=== PATIENT | male | born 2000 | race Caucasian/White ===

== ENCOUNTER 2020-10-29 20:58 | Emergency (ER) | payer OTHER ==
[2020-10-29] MEDS ORDERED: NAPROSYN500 MG PO (23:37)
== END 2020-10-30 00:58 | disposition home or self-care (01) ==
LOC: ER1 20:58
DX: S43.014A Anterior dislocation of right humerus, initial encounter (principal); F17.200 Nicotine dependence, unspecified, uncomplicated; X58.XXXA Exposure to other specified factors, initial encounter; Y93.44 Activity, trampolining
CPT/HCPCS: 23650; 73020; 73030; 96374; 96375; 99152; 99283; J2270; J2405; J2704